=== PATIENT | female | born 1955 | race Caucasian/White ===

== ENCOUNTER → 2018-08-02 | Outpatient (CLI) | payer BC ==
--- NOTE | 2018-08-02 16:30 | KCIC ---
Bilateral digital screening mammograms with 3-D tomosynthesis: Reason for examination: Routine screening. Comparison is made to previous studies dated 01/28/2014 and 11/09/2012. Bilateral mammograms in CC and oblique projections were obtained with 2-D imaging and 3-D tomosynthesis imaging on a Siemens Inspiration unit and reviewed on the workstation. Interpretation was made with the benefit of CAD. The skin and nipples show no abnormalities. No abnormal axillary lymph nodes are seen. The breast parenchyma shows scattered fatty and fibroglandular density. (Breast density: Category B.) There are no dominant masses, suspicious calcifications or architectural distortion. Impression: No evidence of malignancy. Recommend routine screening. BI-RAD Category 2: Benign. "Our facility is accredited by the [employer] Mammography Program." This patient's information has been entered into a reminder system for the patient to be notified with the results of her examination and a target date for the next mammogram. Electronically signed by: Ernestine Toney MD (08/02/2018 4:26 PM) [id number]
== END | disposition home or self-care (01) ==
LOC: KCIC MAMMO 14:13
PROVIDERS: ATTEND Family Medicine
DX: Z12.31 Encounter for screening mammogram for malignant neoplasm of breast (principal)
CPT/HCPCS: 77063; 77067

== ENCOUNTER → 2018-08-09 | Day surgery (SDC) | payer BC ==
[~2018-08-09] MED LIST: CITA40TA12 PO; FLUT9.9S NS; IV RINGERS,LACTATED 1000ML 1,000 ML IV SCH; LEVO137T3 PO; LIDOCAINE 1% PF 2 ML VIAL. ONE; OMEP20CA9 PO; PROPOFOL 40 ML IV ONE; SIMV10TA PO
[2018-08-09 10:18] VITALS: BP 130/75
--- NOTE | 2018-08-10 14:10 | PATHOLOGY ---
[facility] Accession Number: [id number] . 01 Material submitted: . PART A: SMALL BOWEL BIOPSY PART B: GASTRIC ANTRUM BIOPSY PART C: DISTAL ESOPHAGUS BIOPSY PART D: RECTAL BIOPSY . 01 Clinical history: . GERD, CRCS . 02 Diagnosis: A. Small bowel biopsy: - No significant pathologic abnormalities. . B. Gastric biopsy, antrum: - Chronic gastritis, mild. . C. Esophageal biopsy, distal esophagus: - Segments of gastric mucosa showing superficial chronic inflammation. . D. Colorectal biopsy, rectum: - Congestion, focal recent hemorrhage, and mild chronic inflammation, with portions of mucosal-associated lymphoid aggregates. . (JPM/at;08/10/2018) . Special stain performed: Immunoperoxidase stain for Helicobacter on B1. QTA/08/10/2018 . 02 Comment: Sections of the small bowel biopsy reveal segments of focally tangentially oriented duodenal and small intestine mucosa. Where best oriented, the mucosal villi show no sprue-like changes or significant inflammatory changes. Sections of the gastric antral biopsy show congestion and mild chronic inflammation. A properly controlled immunoperoxidase stain for Helicobacter is negative for Helicobacter organisms. Sections of the distal esophageal biopsy reveal segments of gastric mucosa showing superficial mild chronic inflammation. There is no squamous esophageal mucosa. There is no evidence of Evans's change, dysplasia, or malignancy. Sections of the rectal biopsy show congestion, focal recent hemorrhage, and mild chronic inflammation with portions of a few mucosal associated lymphoid aggregates. There is no evidence of an acute proctitis or an active chronic destructive proctitis. . (JPM/at;08/10/2018) . 02 Electronically signed: . Francisco Javier Pandya MD, Pathologist NPI- [id number] . 01 Gross description: . A. Received in formalin labeled "Deepali Ham, small bowel BX," are 4 segments of doan soft tissue measuring 1.1 x 0.9 x 0.2 cm in aggregate dimensions and ranging from 0.4 to 0.5 cm in maximum dimension. The specimen is submitted entirely in cassette A1. . B. Received in formalin labeled "Deepali Ham, gastric antrum BX," is a single segment of doan soft tissue measuring 0.3 cm in maximum dimension. The specimen is entirely submitted in cassette B1. . C. Received in formalin labeled "Deepali Ham, distal esophagus," are 2 segments of doan soft tissue measuring 0.7 x 0.3 x 0.2 cm in aggregate dimensions and ranging from 0.3 to 0.4 cm in maximum dimension. The specimen is submitted entirely in cassette C1. . D. Received in formalin labeled "Deepali Ham, rectal BX," are 2 segments of doan soft tissue measuring 0.3 x 0.1 x 0.1 cm in aggregate dimensions and ranging from 0.1 to 0.2 cm in maximum dimension. The specimen is submitted entirely in cassette D1. (TSD; 08/09/2018) TOB/TOB . 02 Pathologist provided ICD-10: K29.50, K62.89, K62.5 . 02 CPT . 585555, 933672, [id number], [id number], [id number] Specimen Comment: A courtesy copy of this report has been sent to Specimen Comment: [phone], . Specimen Comment: Report sent to / DR GHOSH Specimen Comment: A duplicate report has been generated due to demographic updates. Performed at: [facility] [address] [facility] [address], [place] [id number] MD Luis Love MD Phone: [phone] [facility]formed at: [facility] [address] [place], [place] [id number] MD Francisco Javier Pandya MD Phone: [phone]
== END | disposition home or self-care (01) ==
LOC: ENDOS 08:24
PROVIDERS: ATTEND Internal Medicine Gastroenterology
DX: Z12.11 Encounter for screening for malignant neoplasm of colon (principal); K64.0 First degree hemorrhoids; K62.89 Other specified diseases of anus and rectum; K21.0 Gastro-esophageal reflux disease with esophagitis; K29.50 Unspecified chronic gastritis without bleeding; K62.5 Hemorrhage of anus and rectum; K31.89 Other diseases of stomach and duodenum; F32.9 Major depressive disorder, single episode, unspecified; E78.00 Pure hypercholesterolemia, unspecified; E03.9 Hypothyroidism, unspecified; G47.30 Sleep apnea, unspecified; K58.9 Irritable bowel syndrome, unspecified; Z72.89 Other problems related to lifestyle; Z88.1 Allergy status to other antibiotic agents; Z79.899 Other long term (current) drug therapy; Z90.49 Acquired absence of other specified parts of digestive tract; Z90.710 Acquired absence of both cervix and uterus; Z98.890 Other specified postprocedural states
CPT/HCPCS: 43239; 45380; 88305; 88342; J2704